=== PATIENT | female | born 1990 | race Caucasian/White ===

== ENCOUNTER → 2016-05-21 | Outpatient (CLI) | payer BC ==
[~2016-05-21] MED LIST: BCPILLS PO; CITA20TA4 PO; ERGO1CAP41 PO; LEVO75TA5 PO
[2016-05-21 13:57] LABS: THYROID STIMULATING HORMONE 1.02 uIu/ml (0.300-4.500)
== END | disposition home or self-care (01) ==
LOC: C.LAB1850 11:38
PROVIDERS: ATTEND Family Medicine
DX: E55.9 Vitamin D deficiency, unspecified (principal); E03.9 Hypothyroidism, unspecified

== ENCOUNTER → 2016-08-13 | Outpatient (CLI) | payer BC ==
[~2016-08-13] MED LIST changes: -ERGO1CAP41 PO; +ERGO500011 PO
== END | disposition home or self-care (01) ==
LOC: C.PAPS 11:11
PROVIDERS: ATTEND Obstetrics & Gynecology
DX: Z01.419 Encounter for gynecological examination (general) (routine) without abnormal findings (principal); R87.610 Atypical squamous cells of undetermined significance on cytologic smear of cervix (ASC-US)

== ENCOUNTER → 2016-10-08 | Outpatient (CLI) | payer BC ==
[~2016-10-08] MED LIST changes: +ERGO1CAP41 PO; -ERGO500011 PO
[2016-10-08 13:11] LABS: THYROID STIMULATING HORMONE 1.53 uIu/ml (0.300-4.500)
== END | disposition home or self-care (01) ==
LOC: C.LAB1850 11:18
PROVIDERS: ATTEND Family Medicine
DX: E55.9 Vitamin D deficiency, unspecified (principal); E03.9 Hypothyroidism, unspecified

== ENCOUNTER → 2016-10-08 | Outpatient (CLI) | payer BC ==
--- NOTE | 2016-10-08 15:37 | MAMMOGRAPHY REPORT ---
ULTRASOUND OF RIGHT BREAST: 10/08/2016 CLINICAL HISTORY: The patient reports that her physician felt a palpable right breast lump during a r outine physical exam. The patient reports she has felt this area for a few months and didn't think i t was a lump. COMPARISON: No prior exams were available for comparison. TECHNIQUE: Real-time targeted ultrasound of the right breast was performed. FINDINGS: Real-time, high resolution targeted ultrasound was performed of the area of the palpable l ump pointed out by the patient, in the right breast at 12:00 approximately 4 cm from the nipple. No suspicious solid or cystic masses are noted. There is shadowing of fibroglandular tissue seen in thi s region, which appears similar to tissue in other regions of the right breast and felt to represent normal [place]'s ligament shadowing. IMPRESSION: ACR BI-RADS CATEGORY 1: NEGATIVE No suspicious sonographic abnormality at the site of the palpable right 12:00 breast lump pointed out by the patient. There is no sonographic evidence of malignancy. Recommend clinical follow-up; any decision to biopsy should be based on clinical grounds. The patient was verbally notified of the res ults. Sania Smith M.D. ah/:10/08/2016 11:10:06 Car Sales Representative: Marian CLAIRE)(Joshua), [facility] letter sent: Normal 1/2 BI-RADS Code: ACR BI-RADS Category 1: Negative
== END | disposition home or self-care (01) ==
LOC: C.MAMM 10:50
PROVIDERS: ATTEND Obstetrics & Gynecology
DX: N63 Unspecified lump in breast (principal)

== ENCOUNTER → 2017-04-28 | Outpatient (CLI) | payer OTHER ==
[~2017-04-28] MED LIST changes: -ERGO1CAP41 PO; +ERGO500011 PO
== END | disposition home or self-care (01) ==
LOC: C.LAB1850 11:17
PROVIDERS: ATTEND Physician Assistant
DX: E03.9 Hypothyroidism, unspecified (principal)

== ENCOUNTER → 2017-08-12 | Outpatient (CLI) | payer OTHER | END | disposition home or self-care (01) | LOC: C.LABBC 09:24 | PROVIDERS: ATTEND Physician Assistant | DX: E03.9 Hypothyroidism, unspecified (principal) ==

== ENCOUNTER → 2017-10-28 | Outpatient (CLI) | payer OTHER | END | disposition home or self-care (01) | LOC: C.LAB1850 09:42 | PROVIDERS: ATTEND Obstetrics & Gynecology | DX: Z34.02 Encounter for supervision of normal first pregnancy, second trimester (principal) ==

== ENCOUNTER 2020-07-20 03:21 | Inpatient (IN) ==
[2020-07-20] MEDS ORDERED: OXYTOCIN 30 UNITS/500 ML BAG IV PRN ×2 (03:45→06:07)
--- NOTE | 2020-07-20 03:50 | History & Physical Report ---
Date of Service July 20, 2020 Assessment & Plan (1) Encounter for supervision of normal in multigravida, antepartum: 29 y/o at 40 4/7 wga presenting in labor VSS, mildly elevated BP but very uncomfortable Fetus cat 1 Labor - expectant management, will arom after epidural GBS neg Epidural when labs return History of Present Illness Chief Complaint: Contractions Primary Care Provider: Devin Carlos, DO 29 y/o at 40 4/7 wga w/ JIM 07/16 by LMP who presents w/ c/o ctx increasing in frequency and intensity. Not noting as much FM since ctx began. Denies LOF, some bloody mucous PNI: Hypothyroid, synthroid 112mcg Anxiety Past SUPERVISOR PLEATING Hx: G1 2019 at 41 weeks G2 current Menarche 12, q28-30d cycles Denies hx STI Hx abnl pap [id number], neg cotest 2019 Allergies Allergy/AdvReac Type Severity Reaction Status Date / Time No Known Allergies Allergy Verified 07/16/20 10:12 Home Medications Medication Instructions Recorded Confirmed Type [id number] 3-fat com #1 PO 12/13/19 07/16/20 History citalopram 10 mg tablet 10 mg PO DAILY #30 tab 01/25/20 07/16/20 Rx Synthroid 112 mcg tablet 112 mcg PO DAILY #30 tab NS 06/06/20 07/16/20 Rx Patient History Medical History Anxiety Encounter for anatomic survey Hypothyroid Low vitamin B12 level Panic disorder without agoraphobia Pleurisy RLS (restless legs syndrome) (spontaneous vaginal delivery) Thyroid nodule Vitamin D deficiency Surgical History No history of previous surgery Family History Father Hypertension Brother Diabetes Hypertension Grandmother Pancreas cancer Denies family history of Ovarian cancer Prostate cancer Myocardial infarction Breast cancer Colorectal cancer Social History Smoking Status: Never smoker Second Hand Exposure: No; Do You Dip or Chew Tobacco: No; Hx Alcohol Use: No Hx Substance Use: No Preferred Language: Kosovan Communication Ability: Effective Visual Impairment: No Limitations Hearing Ability: Normal Nurses' Aide Required: No Beliefs That Will Affect Care: None marital status: marital status details: Al (31) [phone] Current Living Situation: Family Current Living Situation Comment: lives with spouse, son, 3 cats, spouse to change litter. current occupational status: employed current occupation: BOOK KEEPER Other Information That Helps Us Care for You: No Feels Safe at Home: Yes Safety Concerns: Feels Safe At This Time Childhood Exposure to Second-Hand Smoke: No Dental Care, Regularly: No Physical Activity Frequency: 5-6 Times per Week Seatbelt Use: always Sunscreen Use: Yes Assistive Devices: None Physical Exam Constitutional: WD/WN, vitals as above Respiratory: normal respiratory effort; no respiratory distress and no labored breathing Psychiatric: A+Ox3, euthymic affect Genitourinary: OB Exam Abdomen: + estimated weight (6-7lbs) OB Exam Monitor Tracing: + external FHT monitor used, + external uterine monitor used (q2-5min) and + category I (145/mod/+accel/-decel) 80/-1 by nursing Results & Data ([facility]) Vital Signs (Past 12 Hours) Vital Signs Temp Pulse Resp BP 07/20/20 03:39 110 H 133/92 07/20/20 03:34 98.1 F 110 H 18 133/92 Laboratory Results OB Labs: Blood Type O Positive 12/23/19 Antibody Screen NEGATIVE 12/23/19 Hemoglobin 11.2 g/dL (12.0-16.0) L 05/01/20 Hematocrit 32.7 % (37-47) L 05/01/20 Mean Corpuscular Volume 87.6 fL (80-100) 12/23/19 Platelet Count 296 K/uL (130-400) 12/23/19 Rubella IgG Antibody Immune (Immune) 12/23/19 Rapid Plasma Reagin Nonreactive (Nonreactive) 12/23/19 Hepatitis B Surface Antigen Neg (Neg) 12/23/19 HIV (1&2) Ab and P24 Ag, 4th Gener Neg (Neg) 12/23/19 Glucose 1 Hour 50 gm Load 112 mg/dl (70-130) 05/01/20 OB Optional Labs: Chlamydia trachomatis RNA NOT DETECTED (NOT DETECTED) 12/13/19 Neisseria gonorrhoeae RNA NOT DETECTED (NOT DETECTED) 12/13/19 Thyroid Stimulating Hormone (TSH) 0.665 uIu/ml (0.300-4.500) 05/15/20 Labs Reviewed: declines cfDNA/cf/sma GBS neg Diagnostic Findings Anterior placenta Code Status & VTE Plan VTE Prophylaxis Plan VTE Prophylaxis will be ordered: Yes Coding Level of Care Code None Diagnoses Encounter for supervision of normal in multigravida, antepartum Z34.80
[2020-07-20] MEDS: LACTATED RINGER'S 1,000 ML IV PRN ×2 (04:05→05:12)
[2020-07-20] MEDS ORDERED: ePHEDrine sulfate 50 MG/ML AMP ONE (04:07)
[2020-07-20] MEDS ORDERED: SODIUM CHLORIDE 0.9% INJ 10 ML VIAL ONE (04:07)
[2020-07-20] MEDS ORDERED: BUPIVACAINE 0.25% 30 ML VIAL ONE (04:07)
[2020-07-20 04:08] LABS: Hematocrit (blood only) 33.3 % (37-47); Hemoglobin 11.3 g/dL (12.0-16.0); Mean Corpuscular Hemoglobin 29.5 pg (25-34); Mean Corpuscular Volume 86.9 fL (80-100); Mean Platelet Volume 10.4 fL (7.4-10.4); Platelet Count 206 K/uL (130-400); RDW Coefficient of Variation 14.7 % (11.5-14.5); RDW Standard Deviation 45.9 fL (36.4-46.3); Red Blood Count 3.83 M/uL (4.2-5.4); White Blood Count 8.23 K/uL (4.8-10.8)
[2020-07-20] MEDS ORDERED: fentaNYL citrate 100 MCG/2 ML VIAL ONE (04:08)
[2020-07-20] MEDS ORDERED: fentaNYL 2MCG/ML ROPIVACAINE 1.25MG/ML 100 ML BAG EPI ONE (04:08)
[2020-07-20 04:10] LABS: Mean Corpuscular Hgb Conc 33.9 g/dL (32-36)
[2020-07-20] MEDS ORDERED: ePHEDrine sulfate 50 MG/ML AMP IV PRN (04:24)
[2020-07-20] MEDS ORDERED: NALOXONE HCL 0.4 MG/1 ML VIAL/CARP IV PRN (04:24)
[2020-07-20] MEDS ORDERED: NALOXONE HCL 1 MG in SODIUM CHLORIDE 0.9% 1000ML 1,000 ML IV PRN (04:24)
[2020-07-20] MEDS ORDERED: diphenhydrAMINE 50 MG/ML VIAL IV PRN (04:24)
[2020-07-20] MEDS ORDERED: fentaNYL 2MCG/ML ROPIVACAINE 1.25MG/ML 100 ML BAG EPI PRN (04:24)
[2020-07-20] MEDS ORDERED: ONDANSETRON INJ 2 MG/ML 2 ML VIAL IV PRN (04:24)
--- NOTE | 2020-07-20 04:27 | Anesthesiology Consultation ---
Date of Service July 20, 2020 Assessment & Plan (1) Encounter for pre-operative examination: Chart Review Chart Review: Patient NOT seen in Pre Admission Testing and Acceptable Risk for Labor Epidural Consults Requested none History Height/Weight Height: 5 ft 6 in Weight: 83.915 kg Allergies Allergy/AdvReac Type Severity Reaction Status Date / Time No Known Allergies Allergy Verified 07/16/20 10:12 Medications Home Medications Medication Instructions Recorded Confirmed Last Taken [id number] 3-fat com #1 PO 12/13/19 07/16/20 Unknown citalopram 10 mg tablet 10 mg PO DAILY #30 tab 01/25/20 07/16/20 Unknown Synthroid 112 mcg tablet 112 mcg PO DAILY #30 tab NS 06/06/20 07/16/20 Unknown Active Medications Generic Name Dose Route Start Last Admin Trade Name Freq PRN Reason Stop Dose Admin Lactated Ringer's 1,000 mls @ 125 mls/hr 07/20/20 03:45 07/20/20 04:05 Lr IV 07/22/20 03:44 999 mls/hr .Q8H PRN Administration L&D Protocol Protocol Past Medical History Medical History Anxiety Encounter for anatomic survey Hypothyroid Low vitamin B12 level Panic disorder without agoraphobia Pleurisy RLS (restless legs syndrome) (spontaneous vaginal delivery) Thyroid nodule Vitamin D deficiency Exercise / Class Metabolic Activity II 4-5 Yardwork/Stairs/Walk up hill Past Family History Family History Father Hypertension Brother Diabetes Hypertension Grandmother Pancreas cancer Denies family history of Ovarian cancer Prostate cancer Myocardial infarction Breast cancer Colorectal cancer Past Surgical History Surgical History No history of previous surgery Past Anesthesia History No Hx of Anesthesia Complications and No Family Hx of Anesthesia Complications History of PONV No Hx of PONV and No Hx of Motion Sickness Social History Smoking Status: Never smoker Do You Dip or Chew Tobacco: No Hx Alcohol Use: No Hx Substance Use: No Physical Exam Vital Signs Last Vital Signs Temp 36.7 C 07/20/20 03:34 Pulse 104 H 07/20/20 04:42 Resp 18 04/23/21 03:34 BP 164/98 H 07/20/20 04:42 Pulse Ox 98 07/20/20 04:42 Testing Laboratory Results 07/20/20 03:55
[2020-07-20] MEDS ORDERED: HYDROCORTISONE ACETATE 25 MG SUPP PR PRN (06:07)
[2020-07-20] MEDS ORDERED: DIPHTHERIA/TETANUS/PERTUSSIS 0.5 ML SYR/VIAL IM ONE (06:07)
[2020-07-20] MEDS ORDERED: bisacodyL 10 MG SUPP PR PRN (06:07)
[2020-07-20] MEDS ORDERED: SUPERCREAM 0.870% 15 GM JAR EXT PRN (06:07)
[2020-07-20] MEDS ORDERED: ACETAMINOPHEN 325 MG TAB PO PRN (06:07)
[2020-07-20] MEDS ORDERED: BENZOCAINE 20% AER SPR 82.5 GM CAN EXT PRN (06:07)
--- NOTE | 2020-07-20 06:12 | Delivery Summary ---
Vaginal Delivery Summary Date of Service July 20, 2020 PREOPERATIVE DIAGNOSIS: 1. Single intrauterine at 40 4/7 wga 2. Labor POSTOPERATIVE DIAGNOSIS: 1. Single intrauterine at 40 4/7 wga 2. Labor 3. Delivered PROCEDURE: 1. Normal spontaneous vaginal delivery. SURGEON: Perla Lobato MD ANESTHESIA: Epidural. ESTIMATED BLOOD LOSS: 300 mL FLUIDS: Continuous LR. URINE OUTPUT: None. COMPLICATIONS: None. CONDITION: Stable. INDICATIONS: 29 y/o at 40 4/7 wga presented this morning with complaints of contractions increasing in frequency and intensity. +FM; denied LOF, VB. Initial exam found her to be 6cm. She received an epidural for pain control. She continued to progress and underwent spontaneous rupture of membranes. She was then found to be complete and desired to push. FINDINGS: A viable male with Apgars of 7 and 8 at 1 and 5 minutes respectively. SPECIMEN: Cord blood OPERATIVE REPORT: The patient progressed to 10 cm, 100% effaced and +2 station, pushed over intact perineum with anesthesia to deliver a viable male , weight and Apgars as above. Head of delivered in JULIANNA position and then restituted to NAHID. Loose nuchal cord was present and reduced. Body and shoulders were delivered without difficulty. was delivered to maternal abdomen and nursing staff. Delayed cord clamping was performed for 60 seconds. Cord was clamped and cut. Cord blood was obtained. Placenta delivered spontaneously intact with 3-vessel cord. IV oxytocin and fundal massage were given for excellent hemostasis. Vagina, cervix, perineum, and placenta were inspected. A second degree laceration was noted and repaired in the usual fashion with a 3-0 Vicryl. Sponge and needle counts correct x2. No sponges were left behind. Mother and stable in immediate period. Vaginal Delivery Summary and 2nd Degree LAC [facility] Vaginal Delivery Charge Vaginal Delivery Codes: 75203 global code for the antepartum, delivery, and post- Delivery Type Details: and 2nd Degree LAC
[2020-07-20] MEDS ORDERED: LACTATED RINGER'S 1,000 ML IV SCH (06:15)
--- NOTE | 2020-07-20 06:57 | Anesthesia Procedure Note ---
Date of Service July 20, 2020 Anesthesia Post Epidural Note Vital Signs Vital Signs: Temp Pulse Resp BP Pulse Ox 36.7 C 83 18 138/66 98 07/20/20 03:34 07/20/20 06:47 07/20/20 06:47 07/20/20 06:47 07/20/20 06:02 Notes Mental Status: alert / awake / arousable Patient Amnestic to Procedure: No Nausea / Vomiting: adequately controlled Pain: adequately controlled Airway Patency, RR, SpO2: stable & adequate BP & HR: stable & adequate Hydration State: stable & adequate Neuraxial Anesthesia: was administered and sensory block is resolving Anesthetic Complications: no major complications apparent and Pt Satisfied with anesthetic care Epidural: Removed without complications and With tip intact
[2020-07-20] MEDS: LEVOTHYROXINE 112 MCG SCH (08:00)
[2020-07-20] MEDS: DOCUSATE SODIUM 100 MG CAP PO SCH ×2 (08:15→21:16)
[2020-07-20] MEDS: PRENATAL VITAMIN 1 TAB PO SCH (08:15)
[2020-07-20] MEDS: CITALOPRAM 20 MG TAB PO SCH (08:15)
[2020-07-20] MEDS ORDERED: LEVOTHYROXINE SODIUM 112 MCG TABLET PO SCH (09:00)
[2020-07-20] MEDS: IBUPROFEN 600 MG TAB PO PRN ×3 (12:21→21:16)
[2020-07-21] MEDS: LEVOTHYROXINE 112 MCG SCH (06:09)
--- NOTE | 2020-07-21 07:20 | Obstetrical Progress Note ---
Date of Service <Harriet Cobb DO - Last Filed: 07/21/20 07:20> July 21, 2020 Assessment & Plan <Harriet Cobb DO - Last Filed: 07/21/20 07:20> (1) state: PPD #1 - PNL: Rh pos, RI, GBS neg, COVID neg - Feels well today. Eating well, voiding well, ambulating well. - Pain well controlled with ibuprofen 600mg Q4H PRN - Routine care -- OOB, ambulation, diet progression as tolerated - After discharge will have 6 week follow-up with Dr. Lobato. - Patient does request discharge home today. Subjective <Harriet Cobb DO - Last Filed: 07/21/20 07:20> Juanita Enriquez is a 29 y/o female who is PPD #1 following spontaneous vaginal delivery at 40+4 weeks. She reports feeling well overall this morning. Minimal abdominal cramping and 2/10 pain well managed on analgesics. Voiding without dysuria. Tolerating meals overnight without difficulty. Patient has been able to ambulate some. She is not yet passing gas. Has persistent lochia with some improvement this morning. Currently . Review of Systems Denies fever or chills. Denies shortness of breath or cough. Denies chest pain. Denies breast pain. Denies dysuria. Denies leg pain or leg swelling. Denies headache or changes in vision. Physical Exam <Harriet Cobb DO - Last Filed: 07/21/20 07:20> General: Alert, oriented. No acute distress. Cardiac: Regular rate and rhythm. No murmurs. Respiratory: Clear to auscultation bilaterally a/p, no wheezes/rales/rhonchi. No increased work of breathing. Symmetrical chest rise. No respiratory distress. Abdomen: Soft, nontender, nondistended. Bowel sounds present. Uterus: Uterine fundus firm, palpable 1 cm below umbilicus. Lower Extremities: No lower extremity edema or swelling. No deep calf pain. Renzo's negative bilaterally. Results & Data ([facility]) <Harriet Cobb DO - Last Filed: 07/21/20 07:20> Vital Signs (Past 12 Hours) Vital Signs Temp Pulse Pulse Resp BP Pulse Ox 07/21/20 04:05 36.8 C 80 16 134/79 99 07/20/20 23:15 37.0 C 80 16 115/69 99 07/20/20 19:30 36.8 C 79 18 126/81 <Michelle Wilhelm MD, FACOG - Last Filed: 07/21/20 07:23> Co-Signing Physician Notes Resident Physician Supervision Note: I interviewed and examined the patient. Discussed with Dr. Cobb and agree with findings and plan as documented in the note. Any exceptions or clarifications are listed here: Doing well. Desires d/c. Instructions reviewed. Documented By: Michelle Wilhelm MD, FACOG Resident Activity Tracking <Harriet Cobb, - Last Filed: 07/21/20 07:20> Resident Involvement: Resident Care Provided Care Provided: OB Delivery
[2020-07-21] MEDS: CITALOPRAM 20 MG TAB PO SCH (07:31)
[2020-07-21] MEDS: PRENATAL VITAMIN 1 TAB PO SCH (07:31)
[2020-07-21] MEDS: DOCUSATE SODIUM 100 MG CAP PO SCH (07:31)
[2020-07-21] MEDS: IBUPROFEN 600 MG TAB PO PRN (07:36)
[2020-07-21] MEDS ORDERED: bisacodyL 5 MG TABEC PO SCH (20:00)
== END 2020-07-21 12:45 | disposition home or self-care (01) | DRG 807 ==
LOC: OPB 03:21 → 4S1 03:25 → 4S2 08:30